=== PATIENT | male | born 1990 | race Caucasian/White ===

== ENCOUNTER 2025-04-28 16:18 | Emergency (ER) | payer BC, SELFPAY ==
--- NOTE | ~2025-04-28 | XR_ITS ---
EXAM: XR wrist RT min 3V DATE: 04/28/2025 16:44 HISTORY: FOOSH INJURY,DISTAL RADIAL PAIN . COMPARISON: None available. FINDINGS: Normal mineralization. No fracture or dislocation. No lytic or blastic lesion. Joint space s are maintained. No erosion or periosteal change. Soft tissues within normal limits. IMPRESSION: No acute osseous finding in the right wrist. Reviewed, dictated and finalized at location K.
--- OUTSIDE RECORDS SUMMARY | 2025-04-28 16:26 | XMS_ITS | Clinical Summary ---
Author Organization [facility] Address [address] [place] [address] Care Team Providers Care Junior Electrical Engineer Name Role Phone Anai Mesa MD Primary Care Provider [phone] Curt Méndez MD Unavailable [phone] Allergies Active Allergy Reactions Criticality Noted Date Comments Iodine Rash,Hives Reaction: RASH, HIVES, , Reaction: RASH, HIVES, Medications hydrOXYzine (ATARAX) 50 mg tablet Take 1 tablet (50 mg total) by mouth 3 (three) times a day as needed for itching 2 caps in evening Active OLANZapine (ZyPREXA) 5 mg tablet Take 1 tablet (5 mg total) by mouth daily In am Active zonisamide (ZONEGRAN) 100 mg capsuleIndicati ons:Partial Epilepsy Treatment Adjunct Take 1 capsule (100 mg total) by mouth daily for 60 doses Takes 4 cap in evening 01/15/2025 Active Active Problems Problem Noted Date Diagnosed Date Ureteral colic 01/15/2025 Seizure disorder 10/15/2015 Overview (01/01/2017): Seizure disorder Seizure 10/25/2014 Overview (01/01/2017): Seizure Encounters Date Type Department Care Team Description 02/07/2025 Documentation [facility] Operating Room [facility] [place] [address] Curt Méndez MD from Last 3 Months Surgical History Surgery Date Site/Laterality Comments HYPOSPADIAS CORRECTION at age 7 Medical History Medical History Date Comments Epilepsy (HCC) Social History Tobacco Use Types Packs/Day Years Used Date Smoking Tobacco: Never Tobacco Cessation:Counseling Given: Not Answered [facility] Utilities Answer Date Recorded In the past 12 months has th e electric, gas, oil, or water company threatened to shut off services in your home? No 01/15/2025 Social Connection and Isolat ion Panel [NHANES] Answer Date Recorded In a typical week, how many times do you talk on the phone with family, friends, or neighbors? More than three times a week 01/15/2025 How often do you get togethe r with friends or relatives? More than three times a week 01/15/2025 How often do you attend chur ch or scientology services? Patient declined 01/15/2025 Do you belong to any clubs o r organizations such as samaritan groups, unions, fraternal or athletic groups, or school groups? Patient declined 01/15/2025 How often do you attend meet ings of the clubs or organizations you belong to? Patient declined 01/15/2025 Are you , , di vorced, , never , or living with a partner? Never 01/15/2025 AUDIT-C Answer Date Recorded Q1: How often do you have a drink containing alcohol? Monthly or less 01/15/2025 Q2: How many drinks containi ng alcohol do you have on a typical day when you are drinking? 3 or 4 5 Q3: How often do you have si x or more drinks on one occasion? Daily or almost daily 01/15/2025 Overall Financial Resource Strain (CARDIA) Answe r Date Recorded How hard is it for you to pa y for the very basics like food, housing, medical care, and heating? Somewhat hard 01/15/2025 Hunger Vital Sign Answer Date Recorded Within the past 12 months, y ou worried that your food would run out before you got the money to buy more. Never true 01/16/20 25 Within the past 12 months, t he food you bought just didn't last and you didn't have money to get more. Never true 01/15/2025 PRAPARE - Transportation Answer Date Re corded In the past 12 months, has l ack of transportation kept you from medical appointments or from getting medications? No 12/27 In the past 12 months, has l ack of transportation kept you from meetings, work, or from getting things needed for daily living? No 01/15/2025 Housing Stability Vital Sign Answer Willem e Recorded In the last 12 months, was t here a time when you were not able to pay the mortgage or rent on time? No 01/15/2025 In the past 12 months, how m any times have you moved where you were living? 0 01/15/2025 At any time in the past 12 m [facility], were you homeless or living in a chcf (including now)? No 01/15/2025 Personal Safety Answer Date Recorded Have you ever been in or are you currently in a harmful physical or emotional relationship or is someone making you feel afraid or unsafe? 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 Gender Identity Not on file Sexual Orientation Not on file Obstetrics History Last Filed Vital Signs Vital Sign Reading Time Taken Comments Blood Pressure 108/79 01/15/2025 4:16 PM CDT Pulse 58 01/15/2025 4:16 PM CDT Temperature 35.9 C (96.6 F) 01/15/2025 4:16 PM CDT Respiratory Rate 18 01/15/2025 4:16 PM CDT Oxygen Saturation 95% 01/15/2025 4:16 PM CDT Inhaled Oxygen Concentration - - Weight 70.7 kg (155 lb 13.8 oz) 01/15/2025 4:03 AM CDT Height 170.2 cm (5' 7) 01/15/2025 4:03 AM CDT Body Mass Index 24.41 01/15/2025 4:03 AM CDT Plan of Treatment Health Maintenance Due Date Last Done Comments Depression Screening 1992 Hepatitis C Screening 1992 Varicella Vaccines (1 of 2 - 13+ 2-dose series) 2005 Regular Well Visit/Exam 18-64 2010 Pneumococcal vaccine <65 (1 of 2 - PCV) 2011 DTaP/Tdap/Td Vaccine (7 - Td or Tdap) 07/13/2016 07/13/2006, 12/09/2004, 01/25/1998, Additional history exists HPV Vaccines (1 - 3-dose SCD M series) 2019 Influenza Vaccine (#1) 2025 Hepatitis B Screening Completed 01/25/1998 , 01/05/1997, 06/27/1996 Medical Devices Implanted Type Area Pen And Pencil Repairer Device Identifier Shelf Expiration Date Model / Serial / Lot SafetyWeb Amy Stent Ureteral Set Double Pigtail Tapered Tip Contour [id number] Hydroplus Coated [id number] - [id number] Implanted:Qty: 1 on 01/15/2025 by Curt Méndez MD at [facility] [employer] Amy 09/06/2027 [id number] / / [id number] Insurance [facility] Advance Directives For more information, please contact: [phone] * Full Code (Latest Code Status on File) Date Activated Date Inactivated Comments 01/15/2025 4:36 AM 01/15/2025 11:41 PM Care Teams Junior Electrical Engineer Relationship Specialty Start Date End Date Anai Mesa MD [address] [place] [address] PCP - General Obstetrics and Gynecology 01/15/25 Curt Méndez MD [address] [place] [address] Consulting Physician Urology 01/15/25
--- OUTSIDE RECORDS SUMMARY | 2025-04-28 16:26 | XMS_ITS | Patient Health Record ---
Author Organization [facility] Address [address] [place] [address] Care Team Providers Care Exceptional Children Teacher Name Role Phone Narcisa Ugarte Primary Care Provider Allergies Allergen (clinical drug ingredient) Drug/Non Drug Allergy documented on EMR Reaction Allergy Type Onset Date Status Iodine Unknown Drug Allergy Active Reason For Referral No Information Medications Medication SIG (Take, Route, Fr equency, Duration) Notes Start Date End Date Status Zonisamide 100 MG 4 capsules at bedtim e Orally Once a day Active Emtricitabine-Tenofovir Active OLANZapine 5 MG 1 tablet Orally Once a day; Duration: 30 days Active hydrOXYzine HCl 50 MG 1 tablet as needed at bedtime Orally Once a day; Duration: 30 days Active Social History Tobacco Use: Social History Observation Description Date Details (start date - stop date) Current Smoker NA - NA Sex Assigned At : Social History Observation Description Sex Assigned At Unknown Tobacco Control (Standard) Question Answer Notes Tobacco use: Current smoker How often do you smoke cigarettes? Every day How many cigarettes a day do you smoke? 5 or les s Additional Findings: Tobacco user Rolls own ciga rettes,e-cigarette Problems Problem Type SNOMED Code ICD Code Onset Dates Problem Status W/U Status Risk Notes Problem Insomnia disorder related to another mental disorder (79033678) Insomnia due to other mental disorder (F51.05) Active confirmed Problem Mood disorder (35854353) Mood disorder (F39) Active confirmed Problem Persistent depressive disorder (2064186098) Persistent depressive disorder (F34.1) Active confirmed Vital Signs Heart Rate 79 /min 02/14/2025 Respiratory Rate 16 /min 02/14/2025 Blood pressure diastolic 84 mm Hg 02/14/2025 Oximetry 98 % 02/14/2025 Height 68 in 02/14/2025 Blood pressure systolic 122 mm Hg 02/14/2025 Weight 160 lbs 02/14/2025 BMI 24.33 kg/m2 02/14/2025 Encounters Encounter Location Date Provider Diagnosis Formerly [facility] [address] [place] [address] 12/13/2024 Narcisa Ugarte Persistent depressive disorder F34.1 ; Mood disorder F39 and Insomnia due to other mental disorder F51.05 Formerly [facility] [address] [place] [address] 02/14/2025 Narcisa Ugarte Insomnia due to other mental disorder F51.05 ; Mood disorder F39 and Persistent depressive disorder F34.[address] [place] [address] 12/11/2024 Narcisa Ugarte Assessments Encounter Date Diagnosis (ICD Code) Assessment Notes Treatment Notes Treatment Clinical Notes Section Notes 12/13/2024 Mood disorder (ICD-10 - F39) cont olanzipine Pt needs AIMS at future visit Please mx for signs and symptoms of : Neuroleptic malignant syndrome (NMS) is a rare and life-threatening reaction to the use of any antipsychotic medications.Sympto ms of NMS include but not limited to:High fever (hyperthermia), Stiff, rigid muscles that can lead to eventual muscle breakdown, AMS, blood pressure changes, excessive sweating and excessive secretion of saliva.NMS is potentially life-threatening and requires immediate medical attention in a hospital setting. If this condition is suspected please seek emergent medical attention. Pt receptive 12/13/2024 Persistent depressive disorder (ICD-10 - F34.1) Cont current meds - doesnt want changes PT reports passive SI- he strongly denies current active SI Mx weight Pt aware to call 911 and or [phone] if having thoughts of suicide plan or intent or having homicidal ideations. Pt voiced understanding. 02/14/2025 Insomnia due to other mental disorder (ICD-10 - F51.05) cont current med Sleep Hygiene- Go to bed and get up at the same time every day. Keep bedroom quiet, relaxing, and at a cool temperature. Turning off electronic devices at least 30 minutes before bedtime. Avoiding large meals and alcohol before bedtime. Avoiding caffeine in the afternoon or evening. Exercising regularly and maintaining a healthy diet. Utilize bed for sleep Encourage patient to have all electronics often hour before bed. Encourage a bedtime routine. 02/14/2025 Mood disorder (ICD-10 - F39) cont current meds Neg for TD or EPS s/s AIMs score today was 1 for missing teeth - needs AIMS Q 6 mth or prn Second generation antipsychotics (SGAs) have metabolic syndrome issues with weight gain, increase in prolactin, increased waist circumference, increased lipids, and increased glucose. Thus routine monitoring of weight, metabolic labs, etc. is indicated. A general rank ordering of antipsychotics that have the greatest to the least risk of metabolic effects is olanzapine, quetiapine, risperidone, ziprasidone, and aripiprazole. However, weight gain can occur with all of these drugs and considerable variability exists among patients receiving the same drug regarding the risk of metabolic effects. Anti-psychotic agents not only increase the risk of metabolic disorder, they also increase the risk of CVA, akathisia, and movement disorders including EPS or tardive dyskinesia (more common with first generation antipsychotics) and more. Neuroleptic malignant syndrome (NMS) is a rare and life-threatening reaction to the use of any antipsychotic medications. Symptoms of NMS include but not limited to:High fever (hyperthermia), Stiff, rigid muscles that can lead to eventual muscle breakdown, AMS, blood pressure changes, excessive sweating and excessive secretion of saliva.NMS is potentially life-threatening and requires immediate medical attention in a hospital setting. If this condition is suspected please send pt out to be evaluated further. 02/14/2025 Persistent depressive disorder (ICD-10 - F34.1) pt reports to be stable Pt aware to call 911 and or 988 if having thoughts of suicide plan or intent or having homicidal ideations. Pt voiced understanding. 12/13/2024 Insomnia due to other mental disorder (ICD-10 - F51.05) Changed rx of vistaril from 50 mg take 1-2 tabs at HS to 50mg take 2 tabs at HS due to pt having a hard time getting a refill. Plan Of Treatment Next Appt Details Provider Name:Narcisa Carroll , 05/16/2025 02:20:00 PM, [address] [place], [address], Insurance Providers Payer Name Payer Address Payer Phone Subscriber Number Group Number Insured Name Patient Relationship to Insured Coverage Start Date Coverage End Date [facility] [address] [facility] [address] [place] [address] [id number] Juliocesar Pitts Self - patient is the insured 5 Medical (General) History Medical History History ICD Code epilepsy Surgical History Surgery Date(Month/Year) hypospadism Ureter Stent 01/15/2025 Hospitalization History Reason Date(Month/Year) seizures
--- OUTSIDE RECORDS SUMMARY | 2025-04-28 16:26 | XMS_ITS | Referral Summary ---
Author Organization [facility] Address [address] [place] [address] Care Team Providers Care Professor Of Music Name Role Phone Anai Mesa MD Primary Care Provider [phone] Curt Méndez MD Unavailable [phone] Encounters Date Type Department Care Team Description 02/07/2025 Documentation [facility] Operating Room [address] [place] [address] Curt Méndez MD from Last 3 Months Allergies Active Allergy Reactions Criticality Noted Date [...] Seizure disorder Seizure 10/25/2014 Overview (01/01/2017): Seizure Social History Tobacco Use Types Packs/Day Years Used Date Smoking Tobacco: Never Tobacco Cessation:Counseling Given: Not Answered [facility] Utilities Answer Date Recorded In the past [...] often do you attend chur ch or presybeterian services? Patient declined 01/15/2025 Do you belong to any clubs o r organizations such as protestant groups, unions, fraternal or athletic groups, or [...] any time in the past 12 [facility], were you homeless or living in a residential (including now)? No 01/15/2025 Personal Safety Answer Date Recorded Have you ever been in or are you currently in a harmful physical or emotional relationship or is someone making you feel afraid or unsafe? 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 Gender Identity Not on file Sexual Orientation Not on file Last Filed Vital Signs Vital Sign Reading [...] 01/15/2025 4:03 AM CDT Plan of Treatment Not on file Medical Devices Implanted Type Area Facilities Coordinator Device Identifier Shelf Expiration Date Model / Serial / Lot exoro system Scientific Amy Stent Ureteral Set Double Pigtail Tapered Tip Contour [id number] Hydroplus Coated [id number] - [id number] Implanted:Qty: 1 on 01/15/2025 by Curt Méndez MD at [facility] [employer] system Scientific Amy 09/06/2027 [id number] / / [id number] Insurance [facility] PL[facility] Advance Directives For more information, please contact: [phone] * Full Code (Latest Code Status on File) Date Activated Date Inactivated Comments 01/15/2025 4:36 AM 01/15/2025 11:41 PM Care Teams Professor Of Music Relationship Specialty Start Date End Date Anai Mesa MD [address] [place] [address] PCP - General Obstetrics and Gynecology 01/15/25 Curt Méndez MD [address] [place] [address] Consulting Physician Urology 01/15/25
--- OUTSIDE RECORDS SUMMARY | 2025-04-28 16:26 | XMS_ITS | Clinical Summary ---
Author Organization [facility] [employer] [facility] [employer] Address [address] [facility] [place] [address] Care Team Providers Care Air Breaker Operator Name Role Phone Jayashree Levi MD Primary Care Provider [phone] Source Comments [facility] [employer] [employer],non-owned Affiliates and Associated Physician Practices is amultiple site organization consisting of ambulatory clinics and hospital sitesin [place], [place], [place] and [place]. This disclosure is being madepursuant to the Care Everywhere program and may not contain all information available regarding this patient. Last updated 18.[facility] [employer] Allergies No known active allergies Medications * Be aware that medications may not be up to date on this document. Alwaysverify current medications with the patient. hydrocodone-acet aminophen (VICODIN) 5-500 MG tablet Take 1 Tab by mouth every 4 hours as needed for Pain. Active Carisoprodol 250 MG TABS Take 1 Tab by mouth 3 times daily. 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 Gender Identity Not on file Sexual Orientation Not on file Last Filed Vital Signs Vital Sign Reading Time Taken Comments Blood Pressure 117/80 02/13/2010 12:43 AM CDT Pulse 100 02/13/2010 12:43 AM CDT Temperature 36 C (96.8 F) 02/13/2010 12:43 AM CDT Respiratory Rate 20 02/13/2010 12:43 AM CDT Oxygen Saturation - - Inhaled Oxygen Concentration - - Weight 72.6 kg (160 lb 0.9 oz) 02/12/2010 8:05 P M CDT Height - - Body Mass Index - - Plan of Treatment Health Maintenance Due Date Last Done Comments HIV SCREENING 2007 HEPATITIS C SCREENING 11/05/2010 DTAP/TDAP/TD VACCINES (1 - Tdap) 2011 HEPATITIS B VACCINE (1 of 3 - 19+ 3-dose series) 2011 HPV VACCINE (1 - 3-dose SCDM series) 2019 COVID-19 VACCINE (1 - 2023-2 5 season) 2024 DEPRESSION SCREENING 09/27/2024 INFLUENZA VACCINE (#1) 2025 ZOSTER VACCINE (1 of 2) 2042 HIB VACCINE Aged Out No longer eligi ble based on patient's age to complete this topic MENINGOCOCCAL (Group B) VACC INE SHARED DECISION-MAKING Aged Out No longer eligibl e based on patient's age to complete this topic MENINGOCOCCAL GROUPS A/C/Y/W VACCINE Aged Out No longer eligible b ased on patient's age to complete this topic PNEUMOCOCCAL VACCINE Aged Out No long er eligible based on patient's age to complete this topic Insurance MEDICAID Care Teams Air Breaker Operator Relationship Specialty Start Date End Date Jayashree Levi MD [address] [place] [address] PCP - General 02/12/10
--- OUTSIDE RECORDS SUMMARY | 2025-04-28 16:26 | XMS_ITS | Encounter Summary ---
Author Organization [facility] Address [address] [facility] [facility] [place] [address] Phone Care Team Providers Care Batt Machine Operator Name Role Phone Anai Mesa MD Primary Care Provider [phone] Encounter Details Date Type Department Care Team (Late st Contact Info) Description 01/15/2025 Telephone [facility] [address] [place] [address] Curt [facility]dez MD [address] [address] [address] Social History Tobacco Use Types Packs/Day Years Used Date Smoking Tobacco: Every Day Smokeless Tobacco: Never Alcohol Use Standard Drinks/Week Comments Not Currently 0 (1 standard drink = 0.6 oz pur e alcohol) Sex and Gender Information Value Date Recorded Sex Assigned at Not on file Legal Sex Male 11:46 PM CDT Gender Identity Not on file Sexual Orientation Not on file documented as of this encounter Miscellaneous Notes * Telephone Encounter - Danielle Ramirez - 01/18/2025 9:22 AM CDT Please see message. * Telephone Encounter - Curt Méndez MD - 01/15/2025 11:33 PM CDT Please schedule this pt for R URS/LL/stent in the OR with me. I stented him at [facility] Thanks! documented in this encounter Plan of Treatment Upcoming Encounters Date Type Department Care Team (Late st Contact Info) Description 05/01/2025 1:30 PM CDT [facility] [place] [address] [facility] [place] [facility] [address] Annetta Ricks, MELTER SUPERVISOR OXYGEN FURNACE, RESEARCH RN SPEC [address] [place] [address] 06/01/2025 11:00 AM CDT Office Visit [facility] [address] [facility] [place] [address] Curt Méndez MD [address] [facility] [address] [place] [address] 06/04/2025 8:30 AM CDT Appointment [facility] Ul[facility]ound [address] [facility] [place] [address] Curt Méndez MD [address] [facility] [address] [place] [address] Discharge Disposition: Discharged to home or Selfcare documented as of this encounter Visit Diagnoses Not on filedocumented in this encounter Care Teams Batt Machine Operator Relationship Specialty Start Date End Date Anai Mesa MD [address] [facility] [address] [place] [address] PCP - General Family Medicine 11/09/23 documented as of this encounter
--- OUTSIDE RECORDS SUMMARY | 2025-04-28 16:26 | XMS_ITS | Clinical Summary ---
Author Organization [facility] - NE[facility] Address [address] [place] [address] Phone Care Team Providers Care Drilling Fluids Specialist Name Role Phone Anai Mesa MD Primary Care Provider [phone] Allergies Active Allergy Reactions Criticality Noted Date Comments Iodine Rash 2023 Medications ergocalciferol (VITAMIN D) 59362 UNIT Capsule Take 50,000 Units by mouth once a week. Active sertraline (ZOLOFT) 50 MG Tablet Take 50 mg by mouth daily. Active zonisamide (ZONEGRAN) 100 MG Capsule Take 100 mg by mouth nightly. 4 capsules every day Active OLANZapine (ZyPREXA) 5 MG Tablet Take 5 mg by mouth every morning. Active hydrOXYzine (ATARAX) 50 MG Tablet Take 50 mg by mouth nightly. 2 tablets daily Active emtricitabine (EMTRIVA) 200 MG Capsule Take 200 mg by mouth daily. Active emtricitabine-t enofovir (TRUVADA) 200-300 MG Tablet Take 1 Tablet by mouth daily. Active HYDROcodone-layne taminophen (NORCO) 5-325 MG TabletIndicatio ns:Kidney stone Take 1 Tablet by mouth every 6 hours as needed for Severe pain. 12 Tablet 02/27/2025 Active Hospital, Clinic, or Other Facility Administered Medication Ordered Dose Route Frequency Start Date End Date Status lidocaine Urethral/Mucosal (GLYDO) 2 % prefilled syringe for urethral catheter insertion PRSY 5 mLIndications:Right ureteral stone 5 mL TU ONCE 04/13/2025 04/13/2025 Ended Active Problems No known active problems Encounters Date Type Department Care Team Description 04/13/2025 1:00 PM CDT Procedure Visit [facility] UR[facility]Y #[address] [place] [address] Curt Méndez MD Right ureteral stone (Primary Dx) Discharge Disposition: Discharged to home or Selfcare 04/13/2025 Travel 02/27/2025 3:10 PM CDT - 02/27/2025 4:40 PM CDT [facility] [address] [place] [address] Curt Méndez MD RIGHT URETEROSCOPY WITH HOLMIUM LASER LITHOTRIPSY 02/27/2025 2:50 PM CDT [facility] [address] [place] [address] Reddy Gao APRN, PAN RECLAIM PROCESSOR 02/27/2025 1:24 PM CDT - 02/27/2025 6:08 PM CDT [facility] [address] [place] [address] Curt Méndez MD Discharge Disposition: Discharged to home or Selfcare 02/27/2025 Telephone [facility] UR[facility] #[address] [place] [address] Curt Méndez MD 02/27/2025 Travel 02/08/2025 Travel 02/07/2025 Telephone [facility] UR[facility] #[address] [place] [address] Curt Méndez MD 01/26/2025 Telephone [facility] [address] [place] [address] Curt Méndez MD from Last 3 Months Family History Medical History Relation Name Comments Heart Disease Mother Diabetes Paternal Aunt Diabetes Paternal Grandfather Breast Cancer Paternal Grandmother Relation Name Status Comments Father Mother Alive Paternal Aunt Paternal Grandfather Paternal Grandmother Social History Tobacco Use Types Packs/Day Years Used Date Smoking Tobacco: Some Days Cigarettes Smokeless Tobacco: Never Tobacco Cessation:Ready to Q uit: Not Asked; Counseling Given: Not Answered Alcohol Use Standard Drinks/Week Comments Yes 0 (1 standard drink = 0.6 oz pur e alcohol) very little Sex and Gender Information Value Date Recorded Sex Assigned at Not on file Legal Sex Male 11:46 PM CDT Gender Identity Not on file Sexual Orientation Not on file Last Filed Vital Signs Vital Sign Reading Time Taken Comments Blood Pressure 129/82 04/13/2025 1:33 PM CDT Pulse 64 04/13/2025 1:33 PM CDT Temperature 36.2 C (97.2 F) 02/27/2025 4:55 PM CDT Respiratory Rate 16 02/27/2025 4:55 PM CDT Oxygen Saturation 98% 04/13/2025 1:33 PM CDT Inhaled Oxygen Concentration - - Weight 72.6 kg (160 lb) 04/13/2025 1:33 PM CDT Height 170.2 cm (5' 7) 04/13/2025 1:33 PM CDT Body Mass Index 25.06 04/13/2025 1:33 PM CDT Plan of Treatment Upcoming Encounters Date Type Department Care Team (Late st Contact Info) Description 05/01/2025 1:30 PM CDT [facility] [address] [place] [address] Annetta Ricks, CLINICAL MARKETING MANAGER, DOCK HAND [address] [place] [address] 06/01/2025 11:00 AM CDT Office Visit [facility] [address] [place] [address] Curt Méndez MD #[address] [address] 06/04/2025 8:30 AM CDT Appointment [facility] Ultrasound [address] [place] [address] Curt Méndez MD #[address] [facility] [address] [place] [address] Discharge Disposition: Discharged to home or Selfcare Health Maintenance Due Date Last Done Comments Hepatitis C Virus (HCV) Screening 1992 Pneumococcal Immunization Combined (1 of 2 - PCV) 2011 Human Papillomavirus (HPV) Immunization (1 - 3-dose SCDM series) 2019 SARS-COV-2 Immunization ( - season) 2024 Influenza Immunization (#1) 2025 Respiratory Syncytial Virus (RSV) Immunization (Adult) (1 - 1-dose 75+ series) 2067 Hepatitis B Immunization Completed 998, 01/05/1997, 06/27/1996 DTaP/Tdap/Td Immunization Discontinued 2024, 07/13/2006, 12/09/2004, Additional history exists TdaP Immunization Completed 02/06/2025, 07/13/2006 Meningococcal Immunization (ACWY) Aged Out No longer eligible based on patient's age to complete this topic Rotavirus Immunization Aged Out No lo nger eligible based on patient's age to complete this topic Medical Devices Implanted Type Area Broadcast Operations Engineer Device Identifier Shelf Expiration Date Model / Serial / Lot Stent Ureteral 6fr 2.1fr 28cm 2 Pigtail Curve 2 Durometer Taper Tip Loprfl Graduated Polaris Ultra - [id number] Implanted:Qty : 1 on 02/27/2025 by Curt Méndez MD at [facility] IMPLANT Right: Ureter [employer] 10/04/2027 [id number] / [id number] / [id number] Procedures Procedure Name Priority Date/Time Associated Diagnosis Comments POCT UA AUTOMATED W/O MICRO Routine 04/13/2025 1:15 PM CDT Right ureteral stone CYSTOSCOPY,REMV CALCULUS,SIMPLE Routine 04/13/2025 1:00 PM CDT Right ureteral stone XR RETROGRADE PYELOGRAM Routine 02/27/2025 4:03 PM CDT LMA Routine 02/27/2025 3:11 PM CDT PATHOLOGY SURGICAL Routine 02/27/2025 3: 09 PM CDT CYSTOSCOPY,INSERT URETERAL STENT 02/27/2025 2:29 PM CDT RIGHT URETERAL STONE Special Needs 5'8 160lbs Hx grand mal siezures (last 2023) smoker/vaper. CYSTOSCOPY,REMV CALCULUS,SIMPLE 02/27/2025 2:29 PM CDT RIGHT URETERAL STONE Special Needs 5'8 160lbs Hx grand mal siezures (last 2023) smoker/vaper. CYSTO/URETERO W/LITHOTRIPSY 02/27/2025 2:29 PM CDT RIGHT URETERAL STONE Special Needs 5'8 160lbs Hx grand mal siezures (last 2023) smoker/vaper. CYSTO/URETERO/PYEL OSCOPY W/LITHOTRIPSY 02/27/2025 2:29 PM CDT RIGHT URETERAL STONE Special Needs 5'8 160lbs Hx grand mal siezures (last 2023) smoker/vaper. CYSTO/URETEROSCOPY ,TX INTRARENAL STRICT 02/27/2025 2:29 PM CDT RIGHT URETERAL STONE Special Needs 5'8 160lbs Hx grand mal siezures (last 2023) smoker/vaper. CYSTO/URETEROSCOPY ,TX URET/PELV STRICT 02/27/2025 2:29 PM CDT RIGHT URETERAL STONE Special Needs 5'8 160lbs Hx grand mal siezures (last 2023) smoker/vaper. CYSTO/URETEROSCOPY ,TX URETER STRICT 02/27/2025 2:29 PM CDT RIGHT URETERAL STONE Special Needs 5'8 160lbs Hx grand mal siezures (last 2023) smoker/vaper. from Last 3 Months Results * (ABNORMAL) POCT UA AUTOMATED W/O MICRO (04/13/2025 1:15 PM CDT) POC UA SPECIFIC GRAVITY 1.015 URINE PH 8.0 5.0 - 9.0 POC URINE LEUKOCYTES 25 /ul(A) Negative Gurmeet/uL POC URINE NITRITE Positive(A) Negative POC URINE PROTEIN 500 mg/dL(A) Negative mg/dL POC URINE GLUCOSE Norm Negative, Norm mg/dL POC URINE KETONE Negative Negative mg/dL POC URINE UROBILINOGEN Norm Norm, 0.2 E.U./dL (mg/dL), 1 E.U./dL (mg/dL) POC URINE BILIRUBIN Negative Negative mg/dL POC URINE BLOOD INSTRUMENT 250 Roberto/uL(A) Negative Roberto/uL POC URINE COLOR Red POC URINE CLARITY Cloudy Urine 04/13/2025 1:15 PM CDT Curt Alexandra MD POINT OF CARE TESTING (MANUAL) Final Result * CYSTOSCOPY,REMV CALCULUS,SIMPLE (04/13/2025 1:00 PM CDT) Narrative Curt Méndez MD - 04/13/2025 1:00 PM CDT Curt Méndez MD 04/13/2025 8:55 PM Cystoscopy Procedure Note Date of Visit: 04/13/2025 Cystourethroscopy and stent removal Juliocesar Pitts is a 34 y.o. male who presents for cystoscopy and removal of an indwelling JJ stent on the right side that was placed following ureteroscopy. Indication(s): Indwelling ureteral stent. Verbal and written consent was obtained and a Time Out was performed. Procedure: The patient was positioned in the supine position. The patient was then placed in the supine position with all pressure points padded again. The urethra and genitals were prepped in the usual fashion. Local anesthesia with 1% lidocaine jelly was administered transurethrally. A well lubricated 16 Somali flexible cystoscope was introduced transurethrally. Findings listed below. Through this, flexible stent graspers were advanced through the scope. The distal curl of the stent was visualized. It was pulled and removed without resistance. It was removed intact. Both curls were visualized. There was minimal debris on the stent noted. Findings: Urethra: No strictures, lesions, or stones Bladder: No stones, tumors, lesions. No trabeculations, diverticuli. Bilateral UO in orthotopic position with clear efflux Prostate: 4.5cm channel, mildly obstructive, no median lobe. Stent: Removed intact with both curls visualized outside the body. Stent discarded The patient tolerated the procedure well. Specimen sent: None Plan: See progress note Curt Alexandra MD [place] - SURGERY Final Result * XR RETROGRADE PYELOGRAM (02/27/2025 4:03 PM CDT) Curt Alexandra MD IMG FLUOROSCOPY ORDERABLES Fin al Result * LMA (02/27/2025 3:11 PM CDT) Narrative Reddy Gao APRN, CRNA - 02/27/2025 3:11 PM CDT Reddy Gao APRN, CRNA 02/27/2025 3:11 PM LMA Staffing Performed: resident/PAN RECLAIM PROCESSOR Resident/PAN RECLAIM PROCESSOR: Reddy Gao APRN, CRNA Performed by: Reddy Gao APRN, CRNA Authorized by: Reddy Gao APRN, CRNA Airway Details Overall Difficulty: Easy Preoxygenated: Yes Ease of Mask Ventilation: Easy LMA Type: Disposable LMA Size: 4 Adequate seal established: Yes LMA placement confirmed by: bilateral breath sounds, CO2 detection Atraumatic LMA Placement Reddy Gao APRN, CRNA ANESTHESIA ORDERAB LES Final Result * Pathology Surgical (02/27/2025 3:09 PM CDT) Case Report Surgical Pathology Report Case: [id number] Authorizing Provider: Curt Méndez MD Collected: 02/27/2025 03:09 PM Ordering Location: [facility] Received: 02/28/2025 08:12 AM [facility] Main OR Pathologist: Cait Jang MD PhD Specimens: A) - Foreign Body, RIGHT URETERAL STENT B) - Stone, RIGHT RENAL STONE 03/01/2025 8:39 AM CDT [facility] FINAL DIAGNOSIS A. Right ureteral stent, removal; - As described grossly. B. Calculus, right kidney, removal: - Nephrolithiasis (gross examination only). 03/01/2025 8:39 AM CDT [facility] at 0839 CDT Pre-Operative Diagnosis RIGHT URETERAL STONE 03/01/2025 8:39 AM CDT [facility] Gross Description A. RIGHT URETERAL STENT The specimen presents in two containers labeled with the patient's name, Juliocesar Pitts. Part A is designated as right ureteral stent. In the container is a single cylindrical blue tube structure that measures 41 cm in length with a maximum diameter of 0.1 cm. There are the words Hab Housing. No other grossly identifiable markings are present. There is no soft tissue present within the specimen or in the specimen container. This is for gross examination only. B. RIGHT RENAL STONE Part B is designated as right renal stone. In saline are several small velez-brown to black calculi ranging in size from less than 0.1 up to 0.2 cm in total dimensions. This specimen is submitted to a reference laboratory for crystallographic examination. This is for gross examination only. MH/sb 03/01/2025 8:39 AM CDT [facility] Other FOREIGN BODY SUBMITTED SPECIMEN / Unknown 02/27/2025 3:09 PM CDT 02/28/2025 8:12 AM CDT Specimen of unknown material (specimen) STONE - BODY MATERIAL / Unknown 02/27/2025 3:13 PM CDT 02/28/2025 8:12 AM CDT Curt Alexandra MD PATHOLOGY/CYTOLOGY ORDERABLES Final Result [facility] #[address] [place] [address] from Last 3 Months Insurance MEDICAID BLUE CROSS [place] Care Teams Drilling Fluids Specialist Relationship Specialty Start Date End Date Anai Mesa MD [address] [place] [id number] PCP - General Family Medicine 11/09/23
--- OUTSIDE RECORDS SUMMARY | 2025-04-28 16:26 | XMS_ITS | Encounter Summary ---
Author Organization [facility] Address [address] [place] [address] Phone Care Team Providers Care Manager Laboratory Name Role Phone Anai Mesa MD Primary Care Provider [phone] Encounter Details Date Type Department Care Team (Late st Contact Info) Description 02/27/2025 Telephone [facility] [address] [facility] [place] [address] Curt Méndez MD #2 [facility], [address] [address] Social History Tobacco Use Types Packs/Day Years Used Date Smoking Tobacco: Some Days Cigarettes Smokeless Tobacco: Never Alcohol Use Standard Drinks/Week Comments Yes 0 (1 standard drink = 0.6 oz pur e alcohol) very little Sex and Gender Information Value Date Recorded Sex Assigned at Not on file Legal Sex Male 11:46 PM CDT Gender Identity Not on file Sexual Orientation Not on file documented as of this encounter Miscellaneous Notes * Telephone Encounter - Danielle Ramirez - 03/06/2025 9:14 AM CDT Pt scheduled * Telephone Encounter - Danielle Ramirez - 03/05/2025 9:36 AM CDT Message left for pt to call back. * Telephone Encounter - Curt Méndez MD - 02/27/2025 4:11 PM CDT Cysto stent pull in 2-3 weeks documented in this encounter Plan of Treatment Upcoming Encounters Date Type Department Care Team (Late st Contact Info) Description 05/01/2025 1:30 PM CDT [facility] [place] [address] [place] [address] Annetta Ricks APRN, AIR CONDITIONING MANAGER [address] [place] [address] 06/01/2025 11:00 AM CDT Office Visit [facility] #[address] [place] [address] Curt Méndez MD #[address] [address] 06/04/2025 8:30 AM CDT [facility] [address] [facility] [place] [address] Curt Méndez MD #[address] [address] Discharge Disposition: Discharged to home or Selfcare documented as of this encounter Visit Diagnoses Not on filedocumented in this encounter Care Teams Manager Laboratory Relationship Specialty Start Date End Date Anai Mesa MD [address] [place], [place] [id number] PCP - General Family Medicine 11/09/23 documented as of this encounter
[2025-04-28 16:27] VITALS: BP 123/75; PULSE 78; RESP 16; TEMP 36.7; O2SAT 100
--- NOTE | 2025-04-28 16:47 | ED.GENADULT ---
HPI - General Adult General Chief complaint: Extremity Injury, Upper Stated complaint: Right Wrist Injury Source: patient Mode of arrival: ambulatory Limitations: no limitations History of Present Illness HPI narrative: Patient presents for evaluation of right wrist pain since last night. He indicates he had been consuming alcohol and tripped, landing on his hands and knees. He did not his head. No loss of consciousness. He states pain in the right wrist is 3/10 in severity at rest but increases to 8/10 with movement. No radicular component. Reports decreased range of motion. He is right-hand dominant. He has not taken any medication to assist with the symptoms. Related Data Home Medications ?Medication ?Instructions ?Recorded ?Confirmed ?Last Taken ?Type emtricitabine 200 mg-tenofovir tablet 04/28/25 Unknown History disoproxil fumarate 300 mg tablet escitalopram oxalate 10 mg tablet mg 04/28/25 Unknown History hydroxyzine HCl 50 mg tablet mg 04/28/25 Unknown History olanzapine 5 mg tablet mg 04/28/25 Unknown History zonisamide 100 mg capsule mg PO 04/28/25 Unknown History Allergies Allergy/AdvReac Type Severity Reaction Status Date / Time iodine Allergy Intermediate Rash Verified 04/28/25 17:00 Review of Systems Review of Systems: CONSTITUTIONAL: Denies fever, chills, or sweats. EYES: Denies visual changes, redness, or discharge. ENT: Denies rhinorrhea, congestion, sore throat, or otalgia. CARDIOVASCULAR: Denies chest pain, palpitations, or edema. RESPIRATORY: Denies cough or dyspnea. GASTROINTESTINAL: Denies abdominal pain, nausea, vomiting, or diarrhea. GENITOURINARY: Denies dysuria or hematuria. SKIN: Reports abrasions to the knees. MUSCULOSKELETAL: Reports right wrist pain. Denies other joint pain. NEUROLOGIC: Denies headache, numbness, dizziness, or weakness. PSYCHIATRIC: Denies anxiety or depression. [facility] Past Medical History Medical History (Updated 04/28/25 @ 17:34 by SIMONA Whitley, GENA) Anxiety Seizure disorder Surgical History Surgical History No pertinent past surgical history Family History Family History Mother Family history non-contributory Social History Social History (Updated 04/28/25 @ 16:59 by Shaggy Layton, [facility], ) Smoking status: Current every day smoker Tobacco type: e-cigarettes/vaping Alcohol intake: current Alcohol use details: Rarely Substance use: current Substance use type: marijuana Gender identity (if verbalized by the patient): Male Spiritual care concerns: No Exam Narrative: GENERAL: Well-appearing, well-nourished, and in no acute distress. HEAD: Normocephalic, atraumatic. EYES: PERRLA and EOMI. ENT: Nares clear, no rhinorrhea or epistaxis. Mucous membranes moist. Oropharynx without tonsillar hypertrophy exudate or other lesions. Bilateral TMs pearly story nonbulging NECK: Supple. No adenopathy or masses. No carotid bruits or JVD CHEST: Clear to auscultation. No respiratory distress. No wheezes rales or rhonchi HEART: Regular rate and rhythm. No murmur heard. Normal peripheral pulses. ABDOMEN: Soft, nontender, nondistended, normal active bowel sounds. EXTREMITIES: There is tenderness in the right wrist without crepitus or deformity. Decreased range of motion of the right wrist. 4/5 hand certified hyperbaric technologist strength on the right. SKIN: Warm, dry, no rash. NEURO: No focal deficits. Alert and oriented x3. PSYCH: Normal mood and affect. Course Course Emergency Course: This is a 34 year old male who presented for evaluation of right wrist pain. X ray negative for fracture. Exam consistent with sprain. Provided with layne wrap. NSAIDs for pain. Follow-up primary provider. Go to the ER for worsening symptoms. Patient in agreement with plan of care. Level of Care: Express Care Visit Vital Signs Vital signs: Vital Signs Temperature 36.7 C 04/28/25 16:27 Pulse Rate 78 04/28/25 16:27 Respiratory Rate 16 04/28/25 16:27 Blood Pressure 123/75 04/28/25 16:27 Pulse Oximetry 100 04/28/25 16:27 Oxygen Delivery Room Air 04/28/25 16:27 Temperature 36.7 C 04/28/25 16:27 Pulse Rate 78 04/28/25 16:27 Respiratory Rate 16 04/28/25 16:27 Blood Pressure 123/75 04/28/25 16:27 Pulse Oximetry 100 04/28/25 16:27 Oxygen Delivery Room Air 04/28/25 16:27 Medical Decision Making Vital Signs Vital Signs: Vital Signs Temperature 36.7 C 04/28/25 16:27 Pulse Rate 78 04/28/25 16:27 Respiratory Rate 16 04/28/25 16:27 Blood Pressure 123/75 04/28/25 16:27 Pulse Oximetry 100 04/28/25 16:27 Oxygen Delivery Room Air 04/28/25 16:27 Temperature 36.7 C 04/28/25 16:27 Pulse Rate 78 04/28/25 16:27 Respiratory Rate 16 04/28/25 16:27 Blood Pressure 123/75 04/28/25 16:27 Pulse Oximetry 100 04/28/25 16:27 Oxygen Delivery Room Air 04/28/25 16:27 Imaging Data Radiologist's impression: EXAM: XR wrist RT min 3V DATE: 04/28/2025 16:44 HISTORY: FOOSH INJURY,DISTAL RADIAL PAIN . COMPARISON: None available. FINDINGS: Normal mineralization. No fracture or dislocation. No lytic or blastic lesion. Joint spaces are maintained. No erosion or periosteal change. Soft tissues within normal limits. IMPRESSION: No acute osseous finding in the right wrist. Discharge Plan Discharge Clinical Impression: Right wrist sprain Patient Disposition: Home Condition: Stable Instructions: Antibiotic Form, Wrist Sprain (ED) Patient Language: Indonesian Prescriptions: No Action olanzapine 5 mg tablet hydroxyzine HCl 50 mg tablet zonisamide 100 mg capsule PO escitalopram oxalate 10 mg tablet emtricitabine-tenofovir (TDF) 200-300 mg tablet Follow-up/Referrals: Dwight,Anai Dawkins MD [Primary Care Provider] - Time of Disposition: 17:34
== END 2025-04-28 17:40 | disposition home or self-care (01) ==
PROVIDERS: Emergency Provider Nurse Practitioner; PCP Family Medicine
DX: S63.501A Unspecified sprain of right wrist, initial encounter (principal); W01.0XXA Fall on same level from slipping, tripping and stumbling without subsequent striking against object, initial encounter; G40.909 Epilepsy, unspecified, not intractable, without status epilepticus; F41.9 Anxiety disorder, unspecified
CPT/HCPCS: 73110; 99203; G0463